=== PATIENT | male | born 1985 | race American Indian/Alaskan Native ===

== ENCOUNTER 2021-06-17 13:05 | Emergency (ER) | payer BC, OTHER ==
--- NOTE | 2021-06-17 13:31 | EDM.PDOC ---
ED HPI GENERAL MEDICAL PROBLEM - General Chief Complaint: Skin Complaint Stated Complaint: AMBULANCE Time Seen by Provider: 06/17/21 13:26 Source of Information: Reports: Patient History Limitations: Reports: No Limitations - History of Present Illness INITIAL COMMENTS - FREE TEXT/NARRATIVE: 36 y/o F c/o 4th toe of R foot turning black. Pt states it has been going on for 5- 6 days. He reports he developed an ulcer on the bottom of his foot ten days ago and [place] meds as prescribed. 5 -6 days ago the 4th toe began turning black and the skin began sluffing off. Pt is a type II diabetic and has hx of Htn. A1c today was 7.0. He denies fever, cough, chills, drugs, etoh, crum, vision prob, cp, db, abd pn, difficulty voiding. Onset: Gradual Duration: Day(s): Location: Reports: Lower Extremity, Left Right Foot Pain Score (Numeric/FACES): 6 - Related Data Allergies Allergy/AdvReac Type Severity Reaction Status Date / Time Penicillins Allergy Airway Verified 06/17/21 13:20 Tightness Home Meds: Home Meds . [Unable to Verify Home Med List] 06/17/21 [History] ED ROS GENERAL - Review of Systems Review Of Systems: Comprehensive ROS is negative, except as noted in HPI. ED EXAM, SKIN/RASH Exam: See Below Exam Limited By: No Limitations General Appearance: Alert Respiratory/Chest: No Respiratory Distress, Lungs Clear Cardiovascular: Normal Peripheral Pulses, Regular Rate, Rhythm Extremities: Other (blackened 4th toe of R foot. eccymosis present on the anterior dorsum of the foot. Large ulceration to the ventral side of the foot.) Neurological: Alert, Oriented Course - Vital Signs Last Recorded V/S: Last Vital Signs Temp 97.2 F 06/17/21 13:21 Pulse 100 06/17/21 13:21 Resp 20 06/17/21 13:21 BP 151/90 H 06/17/21 13:21 Pulse Ox 98 06/17/21 13:21 - Orders/Labs/Meds Orders: Active Orders 24 hr Category Date Time Status Peripheral IV Care [RC] . DIRECTED Care 06/17/21 13:42 Active CULTURE BLOOD [BC] Stat Lab 06/17/21 13:55 Received CULTURE BLOOD [BC] Stat Lab 06/17/21 14:01 Received Sodium Chloride 0.9% [Saline Flush] Med 06/17/21 13:41 Active 10 ml FLUSH ASDIRECTED PRN Blood Culture x2 Reflex Set [OM.PC] Stat Oth 06/17/21 13:41 Ordered Peripheral IV Insertion Adult [OM.PC] Stat Oth 06/17/21 13:42 Ordered Medication Orders Sodium Chloride (Sodium Chloride 0.9% 10 Ml Syringe) 10 ml FLUSH ASDIRECTED PRN PRN Reason: Keep Vein Open Labs: Laboratory Tests 06/17/21 06/17/21 06/17/21 Range/Units 13:55 13:55 13:55 WBC 9.9 (5.0-10.0) 10^3/uL RBC 3.86 L (4.6-6.2) 10^6/uL Hgb 10.9 L D (14.0-18.0) g/dL Hct 31.8 L (40.0-54.0) % MCV 82.4 (80-100) fL MCH 28.2 (27.0-34.0) pg MCHC 34.3 (33.0-35.0) g/dL Plt Count 273 D (150-450) 10^3/uL Neut % (Auto) 66.5 (42.2-75.2) % Lymph % (Auto) 20.9 (20.5-50.1) % [place] % (Auto) 9.7 H (2-8) % Eos % (Auto) 2.7 (1.0-3.0) % Baso % (Auto) 0.2 (0.0-1.0) % Sodium 141 (136-145) mmol/L Potassium 3.4 L (3.5-5.1) mmol/L Chloride 106 (98-107) mmol/L Carbon Dioxide 27 (21-32) mmol/L Anion Gap 11.4 (7-13) mEq/L BUN 13 (7-18) mg/dL Creatinine 0.67 L (0.70-1.30) mg/dL Est Cr Clr Drug Dosing 158.89 mL/min Estimated GFR (MDRD) > 60 BUN/Creatinine Ratio 19.4 (No establ ref range) Glucose 135 H (70-99) mg/dL Lactic Acid 0.8 (0.4-2.0) mmol/L Calcium 8.1 L (8.5-10.1) mg/dL Total Bilirubin 0.7 (0.2-1.0) mg/dL AST 16 (15-37) U/L ALT 27 (16-63) U/L Alkaline Phosphatase 63 (46-116) U/L C-Reactive Protein 6.7 H (0.0-0.9) mg/dL Total Protein 7.0 (6.4-8.2) g/dL Albumin 2.6 L (3.4-5.0) g/dL Globulin 4.4 Albumin/Globulin Ratio 0.59 Meds: Medications Generic Name Dose Route Start Last Admin Trade Name Freq PRN Reason Stop Dose Admin Sodium Chloride 10 ml 06/17/21 13:41 Sodium Chloride 0.9% 10 Ml Syringe FLUSH ASDIRECTED PRN Keep Vein Open - Re-Assessments/Exams Free Text/Narrative Re-Assessment/Exam: 06/17/21 18:15 Attempted transfer pt to [facility] for higher level of care without success. Contacted 2nd call who located a Dr. Maria in [facility] who provided consult over the phone. Dr. Maria advised that the necortic toes usually self amputate and since the pt in not septic that he can follow up at his clinic appointment in [place] tomorrow. Departure - Departure Time of Disposition: 18:17 Disposition: Home, Self-Care 01 Condition: Fair Clinical Impression: Necrosis of toe - Discharge Information *PRESCRIPTION DRUG MONITORING PROGRAM REVIEWED*: Not Applicable *COPY OF PRESCRIPTION DRUG MONITORING REPORT IN PATIENT MILLA: Not Applicable Instructions: Gangrene Forms: ED Department Discharge Additional Instructions: Attend your doctors appointment tomorrow. If your develop a fever, chills, redness or streaking on your affected foot go immediately to the ER. Sepsis Event Note (ED) - Focused Exam Vital Signs: Vital Signs Temp Pulse Resp BP Pulse Ox 06/17/21 13:21 97.2 F 100 20 151/90 H 98
[2021-06-17] MEDS ORDERED: Sodium Chloride 0.9% 10 ML Syringe FLUSH PRN (13:41)
[2021-06-17 14:26] LABS: ANION GAP 11.4 mEq/L (7-13); CHLORIDE,CL 106 mmol/L (98-107); SODIUM,NA 141 mmol/L (136-145)
--- NOTE | 2021-06-17 14:54 | CT ---
EXAMINATION: Foot wo Cont Rt SEX: Male AGE: 36 years CLINICAL HISTORY: 36-year-old hypertensive 253 pound diabetic male with "black, gangrenous" fourth toe. Scan technique: Emergency unenhanced CT scan of the right foot obtained with patient lying supine on the Siemens multislice scanner [place], [place]. All data archived in the PACS system for storage, reformatting and study is bone/soft tissue windows). Interpretation: 1. Fragmentation proximal phalanx first digit (great toe) suggests nondisplaced fracture (age uncertain). 2. Arteriovascular calcifications soft tissues consistent with diabetic. 3. Homogeneous normal bone mineral density. 4. *There is some subcutaneous AIR in the soft tissues along/beneath the fourth toe but no inflammatory periostitis or current signs of osteomyelitis appreciated. No fracture or dislocation fourth toe. 4. No foreign bodies. 5. No sign of other fracture or dislocation right foot (heel spurs at the insertion Achilles tendon and plantar aponeurosis on the os calcis right hindfoot).
== END 2021-06-17 18:39 | disposition home or self-care (01) ==
LOC: DL.ED 13:05
DX: E11.52 Type 2 diabetes mellitus with diabetic peripheral angiopathy with gangrene (principal); I96 Gangrene, not elsewhere classified; I10 Essential (primary) hypertension; Z88.0 Allergy status to penicillin
CPT/HCPCS: 36415; 73700-RT; 80053; 83605; 85025; 86140; 87040; 99284-25

== ENCOUNTER 2022-01-17 22:35 | Emergency (ER) | payer BC, OTHER ==
[2022-01-17] MEDS ORDERED: Acetaminophen 325 MG Tab PO ONE (23:18)
[2022-01-17] MEDS ORDERED: diphenhydrAMINE 25 MG Tab PO ONE (23:18)
[2022-01-17 23:51] LABS: ANION GAP 14.8 mEq/L (7-13); CHLORIDE,CL 105 mmol/L (98-107); SODIUM,NA 139 mmol/L (136-145)
[2022-01-18 00:10] LABS: CORONAVIRUS COVID-19 NAA NEGATIVE (NEGATIVE)
[2022-01-18] MEDS ORDERED: Iopamidol 612 MG/ML 100 ML Bottle IVPUSH ONE (00:14)
[2022-01-18] MEDS ORDERED: Levofloxacin/Dextrose 5%-Water 750 MG in Premix Bag 1 BAG IV ONE (02:29)
== END 2022-01-18 04:45 ==
LOC: DL.ED 22:35
DX: E11.621 Type 2 diabetes mellitus with foot ulcer (principal); L97.519 Non-pressure chronic ulcer of other part of right foot with unspecified severity; E11.65 Type 2 diabetes mellitus with hyperglycemia; M86.9 Osteomyelitis, unspecified; I10 Essential (primary) hypertension; Z88.0 Allergy status to penicillin; Z79.899 Other long term (current) drug therapy; Z20.822 Contact with and (suspected) exposure to COVID-19
CPT/HCPCS: 0240U; 36415; 73701; 80053; 83605; 83735; 85025; 85610; 86140; 87040; 87070; 87077; 87186; 96365; 96366; 96367; 99284; A9270; J1956; J3370; J7050; Q9967

== ENCOUNTER 2022-01-22 14:15 | Emergency (ER) | payer BC | END 2022-01-22 15:38 | disposition left against medical advice (07) | LOC: DL.ED 14:15 | DX: Z53.21 Procedure and treatment not carried out due to patient leaving prior to being seen by health care provider (principal) ==

== ENCOUNTER 2022-12-25 19:37 | Emergency (ER) | payer BC, OTHER ==
[2022-12-25 21:14] LABS: ANION GAP 14.5 mEq/L (7-13); CHLORIDE,CL 106 mmol/L (98-107); SODIUM,NA 139 mmol/L (136-145)
[2022-12-25 21:21] LABS: CORONAVIRUS COVID-19 NAA NEGATIVE (NEGATIVE); RESPIRATORY SYNCYTIAL VIR NAA NEGATIVE (NEGATIVE)
[2022-12-25] MEDS ORDERED: Furosemide 40 MG/4 ML VIAL IVPUSH ONE (21:30)
[2022-12-25 21:31] LABS: ESTIMATED GFR 63 mL/min (>=60)
== END 2022-12-26 00:29 | disposition home or self-care (01) ==
LOC: DL.ED 19:37
DX: R06.02 Shortness of breath (principal); I10 Essential (primary) hypertension; E11.69 Type 2 diabetes mellitus with other specified complication; E11.610 Type 2 diabetes mellitus with diabetic neuropathic arthropathy; D64.9 Anemia, unspecified; N28.89 Other specified disorders of kidney and ureter; R60.0 Localized edema; Z88.0 Allergy status to penicillin; Z79.899 Other long term (current) drug therapy; Z20.822 Contact with and (suspected) exposure to COVID-19
CPT/HCPCS: 0241U; 36415; 71045; 80053; 83605; 83880; 84484; 85025; 86140; 87081; 87430; 93005; 93010; 96374; 99284; 99285; J1940

== ENCOUNTER → 2023-10-25 | Day surgery (SDC) | payer BC, OTHER ==
[~2023-10-25] MED LIST: Bupivacaine 0.5% 30 ML SDV INJECT ONE; Bupivacaine 0.5% 30 ML SDV ONE; CHOLECALCIFEROL 25 MCG PO SCH; CLINDAMYCIN HCL 150 MG PO SCH; Clindamycin in 0.9 % Sod Chlor 600 MG in Premix Bag 1 BAG IV ONE; DOCUSATE SODIUM 100 MG PO SCH; GLIPIZIDE 5 MG PO SCH; Lactated Ringers 1,000 ML IV SCH; Lidocaine 1% 30 ML SDV INJECT ONE; Lidocaine 1% 30 ML SDV ONE; Non-Formulary Medication 1 Each (Amlodipine [Norvasc] 10 MG Tablet) PO SCH; Non-Formulary Medication 1 Each (Aspirin [Halfprin] 81 MG Tab.Ec) PO SCH; Non-Formulary Medication 1 Each (Atorvastatin [Lipitor] 20 MG Tablet) PO SCH; Non-Formulary Medication 1 Each (Hydrochlorothiazide [Hydrochlorothiazide] 25 MG Tablet) PO SCH; Non-Formulary Medication 1 Each (Lisinopril [Lisinopril] 40 MG Tablet) PO SCH; Non-Formulary Medication 1 Each (Semaglutide [Ozempic] 2 MG/0.75 ML Pen.Injctr) INJECT SCH; Sodium Chloride 0.9% 10 ML Syringe FLUSH PRN
== END | disposition home or self-care (01) ==
LOC: DL.SDS 06:09
PROVIDERS: ATTEND Podiatrist Foot & Ankle Surgery
DX: M86.672 Other chronic osteomyelitis, left ankle and foot (principal); E11.3593 Type 2 diabetes mellitus with proliferative diabetic retinopathy without macular edema, bilateral; E11.621 Type 2 diabetes mellitus with foot ulcer; E78.5 Hyperlipidemia, unspecified; E11.65 Type 2 diabetes mellitus with hyperglycemia; E66.01 Morbid (severe) obesity due to excess calories; I10 Essential (primary) hypertension; G47.33 Obstructive sleep apnea (adult) (pediatric); Z68.42 Body mass index [BMI] 45.0-49.9, adult; Z87.891 Personal history of nicotine dependence; Z88.0 Allergy status to penicillin
CPT/HCPCS: 01480; 82947; 87070; 87075; 87077; 87186; J0665; J3490; J7120

== ENCOUNTER 2024-11-23 12:43 | Emergency (ER) | payer MEDICAID, OTHER ==
[2024-11-23] MEDS: Ondansetron 4 MG Tab.DIS PO ONE (13:04)
[2024-11-23] MEDS: Ibuprofen 600 MG Tab PO ONE (13:04)
[2024-11-23 13:32] LABS: BASOPHILS PERCENT AUTO 0.1 % (0.0-1.0); EOSINOPHILS PERCENT AUTO 1.8 % (1.0-3.0); HEMOGLOBIN 15.7 g/dL (14.0-18.0); LYMPHOCYTES PERCENT AUTO 12.5 % (20.5-50.1); MEAN CORPUSCULAR HEMOGLOBIN 28.2 pg (27.0-34.0); MEAN CORPUSCULAR HGB CONC 32.7 g/dL (33.0-35.0); MEAN CORPUSCULAR VOLUME 86.2 fL (80-100); MONOCYTES PERCENT AUTO 15.9 % (2-8); NEUTROPHILS PERCENT AUTO 69.7 % (42.2-75.2); PLATELET COUNT,PLT 174 10^3/uL (150-450); RED BLOOD CELL COUNT 5.57 10^6/uL (4.6-6.2); WHITE BLOOD CELL COUNT,WBC 8.2 10^3/uL (5.0-10.0)
[2024-11-23 13:52] LABS: ALBUMIN 2.9 g/dL (3.4-5.0); ANION GAP 10.2 mEq/L (7-13); BILIRUBIN TOTAL 0.5 mg/dL (0.2-1.0); BUN/CREATININE RATIO 16.3 (No establ ref range); CREATININE 1.9 mg/dL (0.70-1.30); EST CRCL DRUG DOSING (CG) 49.29 mL/min; POTASSIUM,K 5.2 mmol/L (3.5-5.1); PROTEIN TOTAL,TP 7.2 g/dL (6.4-8.2)
[2024-11-23 13:54] LABS: A/G RATIO 0.67
[2024-11-23] MEDS: Take Home: Benzonatate 100 MG, 6 Cap Pack PO ONE (14:15)
[2024-11-23] MEDS: Take Home: Azithromycin 250 MG, 2 Tab Pack PO ONE (14:15)
== END 2024-11-23 14:20 | disposition home or self-care (01) ==
LOC: DL.ED 12:43
DX: J10.1 Influenza due to other identified influenza virus with other respiratory manifestations (principal); H66.001 Acute suppurative otitis media without spontaneous rupture of ear drum, right ear; N28.9 Disorder of kidney and ureter, unspecified; I10 Essential (primary) hypertension; E78.00 Pure hypercholesterolemia, unspecified; E11.9 Type 2 diabetes mellitus without complications; J45.909 Unspecified asthma, uncomplicated; Z88.0 Allergy status to penicillin; Z88.8 Allergy status to other drugs, medicaments and biological substances; Z79.82 Long term (current) use of aspirin; Z79.899 Other long term (current) drug therapy; Z79.85 Long-term (current) use of injectable non-insulin antidiabetic drugs; Z86.16 Personal history of COVID-19
CPT/HCPCS: 36415; 71046; 80053; 85025; 87428; 99283; A9270; 99284